=== PATIENT | male | born 1945 | race Caucasian/White ===

== ENCOUNTER 2017-07-25 10:04 | Day surgery (SDC) | payer MEDICARE ==
[~2017-07-25 10:04] MED LIST: ALLOPURINOL100 MG PO; AMLODIPINE BESYL5 MG PO; ASPIRIN LOW DOS81 M1 PO; CENTRUM PO; INDOCIN50 MG/CAP PO; INDOMETHACIN50 MG PO; ISTALOL0.5 % OU; LEVOTHYROXIN75 MCG PO; LEVOTHYROXIN88 MC1 PO; LOSARTAN POT50 MG PO; MEGARED OMEGA-31 CAP PO; PRESERVISION PO; SYMBICORT 80-4.5MCG; SYMBICORT 80-4.5MCG IN; ZETIA10 MG PO
[2017-07-25 11:25] VITALS: BP 107/59
== END 2017-07-25 11:37 | disposition home or self-care (01) ==
LOC: ENDO 10:04
PROVIDERS: ATTEND Surgery
PROC: 0DBH8ZX Excision of Cecum, Via Natural or Artificial Opening Endoscopic, Diagnostic (ICD-10-PCS; principal; 2017-07-25)
PROC: 0DBL8ZX Excision of Transverse Colon, Via Natural or Artificial Opening Endoscopic, Diagnostic (ICD-10-PCS; 2017-07-25)
DX: Z12.11 Encounter for screening for malignant neoplasm of colon (principal); D12.3 Benign neoplasm of transverse colon; K63.5 Polyp of colon; K57.30 Diverticulosis of large intestine without perforation or abscess without bleeding

== ENCOUNTER 2020-10-27 08:12 | Day surgery (SDC) | payer MEDICARE ==
[~2020-10-27] VITALS: Ht 170.2 cm; Wt 103.0 kg
[2020-10-27 09:51] VITALS: BP 131/83
== END 2020-10-27 09:59 | disposition home or self-care (01) ==
LOC: ENDO 08:12
PROVIDERS: ATTEND Surgery
PROC: 0DBF8ZX Excision of Right Large Intestine, Via Natural or Artificial Opening Endoscopic, Diagnostic (ICD-10-PCS; principal; 2020-10-27)
DX: Z12.11 Encounter for screening for malignant neoplasm of colon (principal); D12.2 Benign neoplasm of ascending colon; K57.30 Diverticulosis of large intestine without perforation or abscess without bleeding; Z87.891 Personal history of nicotine dependence; Z86.010 Personal history of colon polyps